=== PATIENT | male | born 1975 | race Two or more races ===

== ENCOUNTER 2024-08-27 10:07 | Emergency (ER) | payer BC ==
[2024-08-27] MEDS: Tetracaine HCl/PF 0.5% 4 ML Bottle EYEBOTH ONE (11:20)
== END 2024-08-27 11:36 | disposition home or self-care (01) ==
LOC: MW.ED 10:07
DX: T15.82XA Foreign body in other and multiple parts of external eye, left eye, initial encounter (principal); Z75.8 Other problems related to medical facilities and other health care; W44.9XXA Unspecified foreign body entering into or through a natural orifice, initial encounter
CPT/HCPCS: 65220; 99283; 99283-25; J3490